=== PATIENT | female | born 1955 | race Caucasian/White ===

== ENCOUNTER 2018-04-19 20:47 | Emergency (ER) | payer OTHER ==
[~2018-04-19] VITALS: Ht 160 cm; Wt 80.7 kg
[2018-04-19 21:27] VITALS: BP 132/94; Ht 160 cm; Wt 80.7 kg
== END 2018-04-19 23:05 | disposition home or self-care (01) ==
LOC: ED 20:47
DX: T78.1XXA Other adverse food reactions, not elsewhere classified, initial encounter (principal); I10 Essential (primary) hypertension; E11.9 Type 2 diabetes mellitus without complications; X58.XXXA Exposure to other specified factors, initial encounter
CPT/HCPCS: J1200; J2930; J3490; J7030